=== PATIENT | female | born 1980 | race Caucasian/White ===

== ENCOUNTER 2017-10-17 19:02 | Emergency (ER) | payer OTHER ==
[~2017-10-17] VITALS: Ht 177.8 cm; Wt 74.8 kg
[~2017-10-17 19:02] MED LIST: ALBU90OI INH; AZIT250 PO; Bactrim Ds Tab1 EACH PO; Cephalexin500 M1 PO; INDO50 PO; Keflex500 MG PO; Naprosyn500 MG PO; Norco 5-325 Ta1 EACH PO; PERM5TC TOP; RANI150 PO; Zithromax250 MG PO
[2017-10-18] MEDS ORDERED: CEPH500 PO (14:12)
[2017-10-18] MEDS ORDERED: Norco 5-325 Ta1 EACH PO (14:12)
[2017-10-18] MEDS ORDERED: NAPR550 PO (14:12)
[2017-10-18] MEDS ORDERED: Bactrim Ds Tab1 EACH PO (14:12)
== END 2017-10-17 22:00 | disposition left against medical advice (07) ==
LOC: ER 19:02
DX: Z53.21 Procedure and treatment not carried out due to patient leaving prior to being seen by health care provider (principal)

== ENCOUNTER 2017-10-18 12:43 | Emergency (ER) | payer OTHER ==
[~2017-10-18] VITALS: Ht 177.8 cm; Wt 74.8 kg
[2017-10-18] MEDS ORDERED: NAPR550 PO (14:12)
[2017-10-18] MEDS ORDERED: CEPH500 PO (14:12)
[2017-10-18] MEDS ORDERED: Norco 5-325 Ta1 EACH PO (14:12)
[2017-10-18] MEDS ORDERED: Bactrim Ds Tab1 EACH PO (14:12)
== END 2017-10-18 14:20 | disposition home or self-care (01) ==
LOC: ER 12:43
DX: N61.0 Mastitis without abscess (principal); F17.210 Nicotine dependence, cigarettes, uncomplicated
CPT/HCPCS: 99283